=== PATIENT | male | born 1995 | race Caucasian/White ===

== ENCOUNTER → 2020-10-22 | Outpatient (CLI) | payer SELFPAY | END | disposition home or self-care (01) | LOC: LABWHC1 13:02 | PROVIDERS: ATTEND Emergency Medicine | DX: Z20.828 Contact with and (suspected) exposure to other viral communicable diseases (principal) | CPT/HCPCS: U0003; C9803 ==

== ENCOUNTER → 2021-01-02 | Outpatient (CLI) | payer BC, OTHER ==
--- NOTE | 2021-01-02 17:23 | XR ---
EXAMINATION TYPE: XR knee limited RT DATE OF EXAM: 01/02/2021 CLINICAL HISTORY: Chronic knee pain. No injury. TECHNIQUE: Three views of the right knee are obtained. COMPARISON: None. FINDINGS: There is no acute fracture/dislocation evident in right knee. The tri-compartment joint s paces appear within normal limits. The overlying soft tissue appears unremarkable. IMPRESSION: There is no acute fracture or dislocation in the right knee.
== END | disposition home or self-care (01) ==
LOC: RADXRMAIN 17:09
PROVIDERS: ATTEND Physician Assistant Medical
DX: M25.561 Pain in right knee (principal)